=== PATIENT | female | born 1970 | race Caucasian/White ===

== ENCOUNTER 2019-06-13 17:12 | Emergency (ER) | payer MEDICAID, OTHER ==
[~2019-06-13] VITALS: Ht 162.6 cm; Wt 112.0 kg
[~2019-06-13 17:12] MED LIST: AMLO5TAB92 PO; BENZ-49 PO; EPIN0.3P3 IM; PRED10TA PO
[2019-06-13 17:46] VITALS: BP 165/93
[2019-06-13 18:20] LABS: CLARITY,URINE TURBID (Clear); COLOR,URINE YELLOW (Yellow); GLUCOSE, URINE 100 mg/dl (Neg); KETONES,URINE TRACE mg/dl (Neg); LEUKOCYTE ESTERASE ,URINE MODERATE (Neg); NITRITES, URINE POSITIVE (Neg); OCCULT BLOOD,URINE MODERATE (Neg); PROTEIN,URINE 30 mg/dl (Neg)
[2019-06-13 18:28] LABS: UA COLLECTION TYPE CLN CATCH MIDSTREAM
[2019-06-13 18:40] LABS: MUCUS STRANDS FEW /LPF (Neg); SQUAMOUS EPITHELIAL CELL,UR FEW /LPF (FEW); TRANSITIONAL EPI CELLS,URINE FEW /HPF
[2019-06-13 18:41] LABS: WBC,URINE TNTC /HPF (0-4)
[2019-06-13 18:42] LABS: BACTERIA,URINE 4+ /HPF (Neg)
[2019-06-13] MEDS ORDERED: NITR100C6 PO (19:39)
[2019-06-13] MEDS ORDERED: PHEN-716 PO (19:39)
== END 2019-06-13 19:53 | disposition home or self-care (01) ==
LOC: ER 17:13
DX: N39.0 Urinary tract infection, site not specified (principal); F15.90 Other stimulant use, unspecified, uncomplicated; Z91.013 Allergy to seafood; Z79.899 Other long term (current) drug therapy
CPT/HCPCS: 81001; 87077; 87088; 87186; 99283

== ENCOUNTER 2019-06-22 10:10 | Inpatient (IN) | payer OTHER ==
[~2019-06-22] VITALS: Ht 160 cm; Wt 113.0 kg
[~2019-06-22 10:10] MED LIST changes: +NITR100C6 PO; +PHEN-716 PO
[2019-06-22] MEDS ORDERED: ondansetron/PF 4mg/2ml inj IV ONE (10:25)
[2019-06-22] MEDS ORDERED: normal saline 1000ML IV soln IVB ONE (10:25)
[2019-06-22] MEDS ORDERED: metoprolol tartrate 1mg/ml inj IV ONE (10:35)
[2019-06-22] MEDS: morphine 4 MG/ML inj SYRINge IV PRN ×3 (10:39→12:53)
[2019-06-22 10:42] LABS: BASOPHILS # (AUTO) 0.1 X10'3 (0-0.2); BASOPHILS % (AUTO) 0.8 % (0-1); EOSINOPHILS # (AUTO) 0.1 X10'3 (0-0.9); HEMOGLOBIN 13.3 g/dl (12.0-16.0); LYMPHOCYTES # (AUTO) 1.7 X10'3 (1.1-4.8); LYMPHOCYTES % (AUTO) 11.9 % (21-51); MEAN CORPUSCULAR HEMOGLOBIN 30.9 PG (27.0-31.0); MEAN CORPUSCULAR HGB CONC 34.1 g/dL (33.0-36.5); MEAN CORPUSCULAR VOLUME 90.8 FL (78-98); MEAN PLATELET VOLUME 8.3 FL (7.4-10.4); MONOCYTES # (AUTO) 0.5 X10'3 (0-0.9); MONOCYTES % (AUTO) 3.7 % (2-12); NEUTROPHILS # (AUTO) 11.7 X10'3 (1.8-7.7); NEUTROPHILS % (AUTO) 82.6 % (42-75); PLATELET COUNT 321 X10'3 (140-440); RED BLOOD COUNT 4.29 X10'6 (4.20-5.60); RED CELL DISTRIBUTION WIDTH 14.9 % (11.5-14.5); WHITE BLOOD COUNT 14.2 X10'3 (4.5-11.0)
[2019-06-22] MEDS ORDERED: piperacillin/tazo 3.375gm/50ml 50 ML IV ONE (10:50)
[2019-06-22 10:58] LABS: ALANINE AMINOTRANSFERASE 117 U/L (12-78); ALBUMIN 2.8 G/DL (3.4-5.0); ALBUMIN/GLOBULIN RATIO 0.5 (1.1-1.5); ALKALINE PHOSPHATASE 340 IU/L (46-116); ANION GAP 7 (8-16); ASPARTATE AMINO TRANSFERASE 55 U/L (10-37); BILIRUBIN,TOTAL 0.9 MG/DL (0.1-1.0); BLOOD UREA NITROGEN 15 MG/DL (7-18); BUN/CREATININE RATIO 16.5 (6.6-38.0); CALCIUM 8.9 MG/DL (8.5-10.1); CHLORIDE 98 MMOL/L (99-107); CREATININE 0.91 MG/DL (0.40-0.90); GLUCOSE 196 MG/DL (70-104); LIPASE 106 U/L (73-393); POTASSIUM 3.6 MMOL/L (3.5-5.1); SODIUM 136 MMOL/L (135-145); TOTAL CARBON DIOXIDE 31.3 MMOL/L (24-32); TOTAL PROTEIN 7.9 G/DL (6.4-8.2); eGFR 66 ML/MIN
[2019-06-22] MEDS ORDERED: hydrALAZINE 20mg/ml inj. IV ONE ×2 (11:05→12:45)
[2019-06-22 11:06] LABS: URINE HCG NEGATIVE (NEG)
[2019-06-22 11:20] LABS: CLARITY,URINE SLIGHTLY CLOUDY (Clear); COLOR,URINE YELLOW (Yellow); GLUCOSE, URINE 250 mg/dl (Neg); KETONES,URINE NEGATIVE (Neg); LEUKOCYTE ESTERASE ,URINE NEGATIVE (Neg); NITRITES, URINE NEGATIVE (Neg); OCCULT BLOOD,URINE NEGATIVE (Neg); PH,URINE 8.5 (4.8-8.0); PROTEIN,URINE NEGATIVE (Neg)
[2019-06-22 11:21] LABS: UA COLLECTION TYPE CLN CATCH MIDSTREAM
[2019-06-22 11:26] LABS: SQUAMOUS EPITHELIAL CELL,UR FEW /LPF (FEW)
[2019-06-22 11:27] LABS: URINE AMPHETAMINE SCREEN POSITIVE (Neg); URINE BARBITUATE SCREEN NEGATIVE (Neg); URINE BENZODIAZEPINES SCREEN NEGATIVE (Neg); URINE CANNABINOID SCREEN NEGATIVE (Neg); URINE COCAINE SCREEN NEGATIVE (Neg); URINE METHADONE SCREEN NEGATIVE (Neg); URINE OPIATE SCREEN NEGATIVE (Neg); URINE PHENCYCLIDINE SCREEN NEGATIVE (Neg)
[2019-06-22 11:28] LABS: BACTERIA,URINE 1+ /HPF (Neg); MUCUS STRANDS FEW /LPF (Neg); RBC,URINE 0-2 /HPF (0-2)
[2019-06-22 11:29] LABS: HYALINE CASTS 0-3 /LPF (NEGATIVE)
[2019-06-22] MEDS ORDERED: famotidine/PF 10 mg/ml inj IV ONE (11:45)
[2019-06-22] MEDS ORDERED: cloNIDine 0.1 mg tablet PO ONE (12:00)
[2019-06-22] MEDS ORDERED: labetalol 20mg/4ml (5mg/ml) syringe IV ONE (12:40)
[2019-06-22] MEDS ORDERED: LORazepam 2 mg/ml vial IV ONE (12:40)
[2019-06-22] MEDS ORDERED: amLODIPine 5mg tablet PO ONE (12:45)
--- NOTE | 2019-06-22 13:30 | NUR ---
PT SOUND ASLEEP AFTER MEDS AND WONT WAKE UP ENOUGH TO TAKE THE NORVASC SAFELY, PROVIDER NOTIFIED.
[2019-06-22] MEDS ORDERED: AMLO10TA4 PO (14:06)
--- NOTE | 2019-06-22 14:59 | NUR ---
PT VERY GROGGY, VS BETTER. WAITING FRIEND NATALIO ([phone]) TO COME PICK HER UP.
[2019-06-22] MEDS ORDERED: naloxone 2mg/2ml inj ONE (16:02)
--- NOTE | 2019-06-22 16:37 | NUR ---
ASSISSTED PT UP TO [facility], NEW UA SENT ORDERED. WAITING CT
[2019-06-22 17:12] LABS: URINE AMPHETAMINE SCREEN POSITIVE (Neg); URINE BARBITUATE SCREEN NEGATIVE (Neg); URINE BENZODIAZEPINES SCREEN NEGATIVE (Neg); URINE CANNABINOID SCREEN NEGATIVE (Neg); URINE COCAINE SCREEN NEGATIVE (Neg); URINE METHADONE SCREEN NEGATIVE (Neg); URINE OPIATE SCREEN POSITIVE (Neg); URINE PHENCYCLIDINE SCREEN NEGATIVE (Neg)
--- NOTE | 2019-06-22 18:10 | NUR ---
PT UP FOR DC, WENT INTO DC PT SHE IS DIAPHORETIC, BG CHECKED 128, LET DR PIKE KNOW, HE CAME IN AND SAW PT, WILL NOW CONTACT HOSPITALIST
--- NOTE | 2019-06-22 19:23 | NUR ---
PT FRIEND NATALIO #: [phone]
[2019-06-22] MEDS ORDERED: mag hydrox/Alum hydrox/simeth 30ml oral suspension PO PRN (19:50)
[2019-06-22] MEDS ORDERED: acetaminophen 325mg tablet PO PRN (19:50)
[2019-06-22] MEDS ORDERED: normal saline 1000ml 1,000 ML IV ONE (19:50)
[2019-06-22] MEDS ORDERED: ondansetron/PF 4mg/2ml inj IV PRN (19:50)
[2019-06-22] MEDS ORDERED: magnesium 2GM in 50ml NS 50 ML IV PRN (19:50)
[2019-06-22] MEDS ORDERED: potassium CL 10mEq/100ml bag 100 ML IV PRN ×2 (19:50)
[2019-06-22] MEDS ORDERED: magnesium Cl slow-release 64mg tablet PO PRN (19:50)
[2019-06-22] MEDS ORDERED: magnesium hydroxide 30ml (MOM) UD suspension PO PRN (19:50)
[2019-06-22] MEDS ORDERED: potassium Cl 20 mEq SR tablet PO PRN ×2 (19:50)
[2019-06-22] MEDS ORDERED: magnesium 4gm in 100ml NS 100 ML IV PRN (19:50)
[2019-06-22] MEDS: lactobacillus rhamnosus 10,000 MMU CELLS/CAPSULE PO SCH (20:00)
[2019-06-22] MEDS ORDERED: hydrALAZINE 20mg/ml inj. IV PRN (21:05)
[2019-06-22] MEDS ORDERED: LORazepam 1 MG tablet PO PRN (21:05)
--- NOTE | 2019-06-22 21:05 | NUR ---
called to give report, spoke to Alissa says nurse is coming from [place], will call back in a few mins
--- NOTE | 2019-06-22 21:07 | NUR ---
called to give report, spoke to Alissa says nurse is coming from [place], will call back in a few mins
[2019-06-22 21:30] VITALS: BP 110/73
--- NOTE | 2019-06-22 22:04 | NUR ---
2119 RECEIVED REPORT FROM BISI ANN. 2129 RECEIVED PATIENT FROM VIPIN SYED FROM ER WITH ALL BELONGINGS IN STABLE CONDITION. VERY DIAPHORETIC. AWAKES TO VOICE. 4L NC.
[2019-06-22 22:34] VITALS: BP 110/70
--- NOTE | 2019-06-22 22:44 | NUR ---
PAGER ID: [phone] MESSAGE: Elena Wan, [facility] 23B, blood culture from aerobic bottle positive for Gram Negative Rods. Nayan, [id number]
--- NOTE | 2019-06-22 22:54 | NUR ---
Dr. Lutz called back and ordered "banana bag" the multi vit with vit k now. Also ordered sozyn start at midnight. No other orders were giving at this time.
[2019-06-22] MEDS ORDERED: MVI, adult No.4 with vit. K 10 ML in dextrose 5% water 500ml 500 ML IV SCH ×2 (23:55)
[2019-06-22] MEDS ORDERED: MVI, adult No.4 with vit. K 10 ML in dextrose 5% water 500ml 500 ML IV ONE ×2 (23:55)
[2019-06-23] VITALS (17 sets, daily range): BP systolic 128–174; BP diastolic 69–96
[2019-06-23] MEDS ORDERED: piperacillin/tazo 3.375gm/50ml 50 ML IV SCH ×2
--- NOTE | 2019-06-23 00:52 | NUR ---
PAGER ID: [phone] MESSAGE: Savage Elena 48 female, Ortho room 23b, troponin results are 0.04, 0.04, 0.05, and the last troponin came up to be 0.09. Patient still in deep sleep, drowsy.
--- NOTE | 2019-06-23 01:04 | NUR ---
Dr. Lutz acknowledged the troponin level of the patient which was 0.09. Since the patient is in deep sleep, Dr. Lutz ordered 0.2mg Narcan IV once. No other orders were given at this time.
[2019-06-23] MEDS ORDERED: naloxone 0.4 mg/ml inj IV ONE (01:05)
--- NOTE | 2019-06-23 01:31 | NUR ---
the patient is alert, oriented x4. Dr. Lutz at the bedside spoke with the patient. 0.2mg Narcan iv one dose cancelled. No other orders were given by Dr. Lutz.
[2019-06-23 05:18] LABS: ALBUMIN 2.4 G/DL (3.4-5.0); ANION GAP 10 (8-16); BLOOD UREA NITROGEN 27 MG/DL (7-18); BUN/CREATININE RATIO 10.2 (6.6-38.0); CALCIUM 8.6 MG/DL (8.5-10.1); CHLORIDE 99 MMOL/L (99-107); CREATININE 2.65 MG/DL (0.40-0.90); GLUCOSE 191 MG/DL (70-104); MAGNESIUM 1.8 MG/DL (1.5-2.4); POTASSIUM 4.9 MMOL/L (3.5-5.1); SODIUM 136 MMOL/L (135-145); TOTAL CARBON DIOXIDE 26.8 MMOL/L (24-32); eGFR 19 ML/MIN
--- NOTE | 2019-06-23 05:34 | NUR ---
PAGER ID: [phone] MESSAGE: Elena Wan, 48 F, admitted for acute toxic encephalopathy. GFR decreased from 66 to 19, Cr has jumped from 0.9 to 2.65, potassium of 4.9. Patient is resting at this time. Not complaining of anything...
[2019-06-23 05:54] LABS: BASOPHILS # (AUTO) 0.1 X10'3 (0-0.2); BASOPHILS % (AUTO) 0.2 % (0-1); EOSINOPHILS % (AUTO) 0 % (0-6); HEMATOCRIT 35.9 % (35.0-45.0); HEMOGLOBIN 12.1 g/dl (12.0-16.0); LYMPHOCYTES # (AUTO) 1.1 X10'3 (1.1-4.8); LYMPHOCYTES % (AUTO) 2.9 % (21-51); MEAN CORPUSCULAR HEMOGLOBIN 30.8 PG (27.0-31.0); MEAN CORPUSCULAR HGB CONC 33.6 g/dL (33.0-36.5); MEAN CORPUSCULAR VOLUME 91.6 FL (78-98); MONOCYTES # (AUTO) 1.3 X10'3 (0-0.9); MONOCYTES % (AUTO) 3.4 % (2-12); NEUTROPHILS # (AUTO) 34.6 X10'3 (1.8-7.7); NEUTROPHILS % (AUTO) 93.5 % (42-75); PLATELET COUNT 314 X10'3 (140-440); RED BLOOD COUNT 3.92 X10'6 (4.20-5.60); RED CELL DISTRIBUTION WIDTH 14.8 % (11.5-14.5)
--- NOTE | 2019-06-23 06:00 | NUR ---
Called Dr. Talavera and informed him regarding the critical value with WBC being 37.0. He acknowledged the critical lab value but did not order anything at this time.
--- NOTE | 2019-06-23 06:06 | NUR ---
Dr. Lutz ordered NS@ rate of 100 ml/hr continuous. No other orders were given at this time.
--- NOTE | 2019-06-23 06:19 | NUR ---
Problems reprioritized. Patient report given Cecile, questions answered & plan of care reviewed with .
[2019-06-23 06:35] LABS: PLATELET ESTIMATE NORMAL; TOTAL CELLS COUNTED 100
[2019-06-23] MEDS: normal saline 1000ml 1,000 ML IV SCH ×3 (07:26→21:30)
[2019-06-23] MEDS: lactobacillus rhamnosus 10,000 MMU CELLS/CAPSULE PO SCH ×4 (07:29→20:00)
[2019-06-23] MEDS: K and/or MAG REPLACEMENT MC SCH (07:29)
[2019-06-23] MEDS: heparin, porcine 5000 units/ml vial SQ SCH ×2 (07:30→20:11)
[2019-06-23] MEDS ORDERED: thiamine inj. 100 MG, folic acid inj. 2 MG in normal saline 100ml IV soln 100.0 ML IV SCH (08:00)
[2019-06-23] MEDS ORDERED: MVI, adult No.4 with vit. K 10 ML in dextrose 5% water 500ml 500 ML IV SCH ×4 (08:00→22:52)
[2019-06-23] MEDS ORDERED: CefTRIAXone 2gm/D5W 50ml 50 ML IV SCH (08:00)
[2019-06-23] MEDS ORDERED: enoxaparin 40mg/0.4ml syringe SQ SCH (08:00)
[2019-06-23] MEDS ORDERED: metroNIDAZOLE-Flagyl 500mg/NS 100 ML IV SCH (08:00)
[2019-06-23 10:11] LABS: BASOPHILS % (AUTO) 0.1 % (0-1); EOSINOPHILS % (AUTO) 0.1 % (0-6); HEMATOCRIT 35.1 % (35.0-45.0); HEMOGLOBIN 11.8 g/dl (12.0-16.0); LYMPHOCYTES # (AUTO) 1.2 X10'3 (1.1-4.8); LYMPHOCYTES % (AUTO) 3.9 % (21-51); MEAN CORPUSCULAR HEMOGLOBIN 30.6 PG (27.0-31.0); MEAN CORPUSCULAR HGB CONC 33.6 g/dL (33.0-36.5); MEAN CORPUSCULAR VOLUME 91.2 FL (78-98); MEAN PLATELET VOLUME 8.5 FL (7.4-10.4); MONOCYTES # (AUTO) 1.1 X10'3 (0-0.9); MONOCYTES % (AUTO) 3.8 % (2-12); NEUTROPHILS # (AUTO) 28.2 X10'3 (1.8-7.7); NEUTROPHILS % (AUTO) 92.1 % (42-75); PLATELET COUNT 290 X10'3 (140-440); RED BLOOD COUNT 3.85 X10'6 (4.20-5.60); RED CELL DISTRIBUTION WIDTH 15.2 % (11.5-14.5)
[2019-06-23 10:19] LABS: WHITE BLOOD COUNT 30.6 X10'3 (4.5-11.0)
[2019-06-23 10:32] LABS: ALANINE AMINOTRANSFERASE 150 U/L (12-78); ALBUMIN 2.3 G/DL (3.4-5.0); ALBUMIN/GLOBULIN RATIO 0.5 (1.1-1.5); ALKALINE PHOSPHATASE 345 IU/L (46-116); ANION GAP 7 (8-16); ASPARTATE AMINO TRANSFERASE 104 U/L (10-37); BILIRUBIN,TOTAL 1.7 MG/DL (0.1-1.0); BLOOD UREA NITROGEN 31 MG/DL (7-18); BUN/CREATININE RATIO 11.5 (6.6-38.0); CALCIUM 8.6 MG/DL (8.5-10.1); CHLORIDE 98 MMOL/L (99-107); CREATININE 2.69 MG/DL (0.40-0.90); GLUCOSE 214 MG/DL (70-104); POTASSIUM 4.3 MMOL/L (3.5-5.1); SODIUM 135 MMOL/L (135-145); TOTAL CARBON DIOXIDE 29.9 MMOL/L (24-32); eGFR 19 ML/MIN
[2019-06-23] MEDS ORDERED: BUPIVAcaine/PF 2.5 mg/ml (0.25%) 30ml vial ONE (13:40)
[2019-06-23] MEDS ORDERED: ceFAZolin 1000mg inj ONE (13:40)
[2019-06-23] MEDS ORDERED: acetaminophen 1000 MG/100ml vial IV ONE (14:22)
[2019-06-23] MEDS ORDERED: desflurane 240ml liquid inh. IH ONE (14:22)
[2019-06-23] MEDS ORDERED: fentaNYL /PF 50mcg/ml 5ml ampule ONE (14:36)
[2019-06-23] MEDS ORDERED: midazolam 2 mg/2 ml injection ONE (14:36)
[2019-06-23] MEDS ORDERED: LIDOcaine 2% (20mg/ml) 5ml vial ONE (14:37)
[2019-06-23] MEDS ORDERED: ATRACURIUM 10 MG/ML 5ML INJECTION IV ONE (14:37)
[2019-06-23] MEDS ORDERED: propofol inj 20 ML IV ONE (14:37)
[2019-06-23] MEDS ORDERED: ceFOXitin 1000 MG inj ONE ×2 (15:30)
[2019-06-23] MEDS ORDERED: neostigmine methylsulfate 1 MG/ML 10ml vial ONE (15:40)
[2019-06-23] MEDS ORDERED: glycopyrrolate 0.2mg/ml inj ONE (15:40)
--- NOTE | 2019-06-23 15:55 | NUR ---
Received from OR via ICU BED, accompanied by Anesthesiologist DR. ORANTES and report given by Anesthesiolgist. PT ARRIVED SLEEPY AROUSED TO VERBAL. O2 VIA MASK AT 10L IN PLACE. DRESSING TO BAD CDI. TOUSSAINT WITH GOOD CSM. PULSES AND SHIFT SUPERVISOR RN WNL. FC NOTED WITH DARK LEI COLORED URINE. PT IS TO GO TO ICU
--- NOTE | 2019-06-23 16:13 | NUR ---
Patient arrived to 2037 VSS on 2L NC. Sleepy but oriented and appropriate. Attached to monitor and oriented to room and given call light with instructions to call for assistance. BLL and bed alarm set
[2019-06-23] MEDS ORDERED: ringers solution, lacted 1,000 ML IV SCH (16:14)
[2019-06-23] MEDS ORDERED: morphine 4 MG/ML inj SYRINge IV PRN ×2 (16:15)
[2019-06-23] MEDS ORDERED: proCHLORperazine 10 MG/2 ml inj IV PRN (16:15)
[2019-06-23] MEDS ORDERED: enalaprilat dihydrate 2.5mg/2ml vial IV PRN (16:15)
[2019-06-23] MEDS ORDERED: labetalol 20mg/4ml (5mg/ml) syringe IV PRN (16:15)
[2019-06-23] MEDS ORDERED: ondansetron/PF 4mg/2ml inj IV PRN (16:15)
--- NOTE | 2019-06-23 16:15 | NUR ---
Report called to receiving nurse ALCIDES ANN. Transferred via ICU BED TO ROOM 203. Belongings ARE IN ROOM 4023B FAMILY/STAFF WILL RETRIEVE THEM. VSS ON TRANSFER. Special Issues communicated to receiving nurse.
[2019-06-23 17:14] LABS: TOTAL PROTEIN,URINE RANDOM 48.4 MG/DL
[2019-06-23 17:21] LABS: CLARITY,URINE CLEAR (Clear); GLUCOSE, URINE 100 mg/dl (Neg); KETONES,URINE NEGATIVE (Neg); LEUKOCYTE ESTERASE ,URINE NEGATIVE (Neg); OCCULT BLOOD,URINE TRACE-INTACT (Neg); PH,URINE 5.5 (4.8-8.0); PROTEIN,URINE 30 mg/dl (Neg)
[2019-06-23 17:32] LABS: COLOR,URINE DARK YELLOW (Yellow); UA COLLECTION TYPE FOLEY CATH
[2019-06-23 17:34] LABS: NITRITES, URINE NEGATIVE (Neg)
[2019-06-23 17:35] LABS: RBC,URINE 0-2 /HPF (0-2)
[2019-06-23] MEDS: piperacillin/tazo 4.5gm/100ml 100 ML IV SCH ×2 (17:35→23:46)
[2019-06-23 17:36] LABS: BACTERIA,URINE FEW /HPF (Neg); MUCUS STRANDS NONE SEEN /LPF (Neg); SQUAMOUS EPITHELIAL CELL,UR FEW /LPF (FEW)
[2019-06-23 18:10] LABS: UA EOSINOPHILS NO EOS /HPF
--- NOTE | 2019-06-23 18:15 | NUR ---
Patient in room ICU 2037. I have received report from Jesus ANN and had the opportunity to ask questions and assume patient care.
[2019-06-23] MEDS ORDERED: HYDROmorphone inj. 0.5 MG/0.5 ML DISP.SYRIN IV PRN (19:55)
[2019-06-23 20:03] LABS: BASOPHILS # (AUTO) 0.1 X10'3 (0-0.2); BASOPHILS % (AUTO) 0.5 % (0-1); EOSINOPHILS % (AUTO) 0.1 % (0-6); HEMATOCRIT 34.1 % (35.0-45.0); HEMOGLOBIN 11.7 g/dl (12.0-16.0); LYMPHOCYTES # (AUTO) 0.9 X10'3 (1.1-4.8); LYMPHOCYTES % (AUTO) 3.3 % (21-51); MEAN CORPUSCULAR HEMOGLOBIN 31.2 PG (27.0-31.0); MEAN CORPUSCULAR HGB CONC 34.3 g/dL (33.0-36.5); MEAN PLATELET VOLUME 8.8 FL (7.4-10.4); MONOCYTES # (AUTO) 0.9 X10'3 (0-0.9); MONOCYTES % (AUTO) 3.1 % (2-12); NEUTROPHILS # (AUTO) 25.9 X10'3 (1.8-7.7); PLATELET COUNT 249 X10'3 (140-440); RED BLOOD COUNT 3.74 X10'6 (4.20-5.60); RED CELL DISTRIBUTION WIDTH 14.8 % (11.5-14.5)
[2019-06-23 20:06] LABS: WHITE BLOOD COUNT 27.8 X10'3 (4.5-11.0)
[2019-06-23] MEDS: HYDROmorphone inj. 0.5 MG/0.5 ML DISP.SYRIN IV PRN (20:13)
[2019-06-23 20:19] LABS: ALANINE AMINOTRANSFERASE 147 U/L (12-78); ALBUMIN 2.1 G/DL (3.4-5.0); ALBUMIN/GLOBULIN RATIO 0.5 (1.1-1.5); ALKALINE PHOSPHATASE 303 IU/L (46-116); ANION GAP 11 (8-16); ASPARTATE AMINO TRANSFERASE 140 U/L (10-37); BILIRUBIN,TOTAL 2.3 MG/DL (0.1-1.0); BLOOD UREA NITROGEN 32 MG/DL (7-18); BUN/CREATININE RATIO 15.2 (6.6-38.0); CHLORIDE 102 MMOL/L (99-107); GLUCOSE 181 MG/DL (70-104); POTASSIUM 4.3 MMOL/L (3.5-5.1); SODIUM 136 MMOL/L (135-145); TOTAL CARBON DIOXIDE 23.5 MMOL/L (24-32); TOTAL PROTEIN 6.5 G/DL (6.4-8.2); eGFR 25 ML/MIN
[2019-06-24] VITALS (24 sets, daily range): BP systolic 112–187; BP diastolic 59–111
[2019-06-24] MEDS: HYDROmorphone inj. 0.5 MG/0.5 ML DISP.SYRIN IV PRN ×4 (00:08→19:39)
[2019-06-24] MEDS: LORazepam 2 mg/ml vial IV PRN ×3 (02:31→19:38)
[2019-06-24] MEDS ORDERED: HYDROmorphone 1 mg/ml syringe IV ONE (03:05)
[2019-06-24] MEDS ORDERED: simethicone 80mg chew tab PO ONE (03:05)
--- NOTE | 2019-06-24 03:05 | NUR ---
Call placed and spoke with Chantale DUBOSE concerning pt uncontroled pain. Chantale DUBOSE advised she would put in orders for patient.
[2019-06-24] MEDS: normal saline 1000ml 1,000 ML IV SCH ×3 (04:05→17:21)
[2019-06-24 05:16] LABS: BASOPHILS % (AUTO) 0.1 % (0-1); EOSINOPHILS % (AUTO) 0 % (0-6); HEMATOCRIT 31.8 % (35.0-45.0); HEMOGLOBIN 10.7 g/dl (12.0-16.0); LYMPHOCYTES % (AUTO) 4.5 % (21-51); MEAN CORPUSCULAR HGB CONC 33.6 g/dL (33.0-36.5); MEAN CORPUSCULAR VOLUME 92.4 FL (78-98); MEAN PLATELET VOLUME 9.2 FL (7.4-10.4); MONOCYTES # (AUTO) 0.8 X10'3 (0-0.9); MONOCYTES % (AUTO) 3.5 % (2-12); NEUTROPHILS # (AUTO) 20.7 X10'3 (1.8-7.7); NEUTROPHILS % (AUTO) 91.9 % (42-75); PLATELET COUNT 244 X10'3 (140-440); RED BLOOD COUNT 3.45 X10'6 (4.20-5.60); RED CELL DISTRIBUTION WIDTH 14.7 % (11.5-14.5); WHITE BLOOD COUNT 22.5 X10'3 (4.5-11.0)
[2019-06-24 05:18] LABS: ANION GAP 12 (8-16); BLOOD UREA NITROGEN 26 MG/DL (7-18); BUN/CREATININE RATIO 14.4 (6.6-38.0); CALCIUM 8.4 MG/DL (8.5-10.1); CHLORIDE 104 MMOL/L (99-107); CREATININE 1.81 MG/DL (0.40-0.90); GLUCOSE 127 MG/DL (70-104); MAGNESIUM 1.8 MG/DL (1.5-2.4); POTASSIUM 4.3 MMOL/L (3.5-5.1); SODIUM 141 MMOL/L (135-145); TOTAL CARBON DIOXIDE 25.2 MMOL/L (24-32); eGFR 30 ML/MIN
--- NOTE | 2019-06-24 05:55 | NUR ---
This RN has made multiple attempts to instruct patient in use of IS and demonstrate understanding. Patient continues to refuse and be noncompliant,
--- NOTE | 2019-06-24 06:14 | NUR ---
Problems reprioritized. Patient report given, questions answered & plan of care reviewed with Jesus ANN.
[2019-06-24] MEDS: lactobacillus rhamnosus 10,000 MMU CELLS/CAPSULE PO SCH ×3 (08:00→19:16)
[2019-06-24] MEDS: K and/or MAG REPLACEMENT MC SCH (08:00)
[2019-06-24] MEDS: piperacillin/tazo 4.5gm/100ml 100 ML IV SCH (08:56)
[2019-06-24] MEDS: heparin, porcine 5000 units/ml vial SQ SCH ×2 (09:14→20:43)
[2019-06-24] MEDS: CefTRIAXone 2gm/D5W 50ml 50 ML IV SCH (11:57)
--- NOTE | 2019-06-24 12:30 | NUR ---
About two hours after getting Dilaudid, pt begins labored breathing rr in the high 30's, HR and BP increases significantly. patient seems to be in a lot of pain and is grunting and difficult to understand. Md to bedside to assess; orders for abg and cxr Addendum: 06/24/19 at 1305 by Jesus Dumont RN Pt appears in distress moaning states her stomach hurts but unable to elaborate. She is diaphoretic and restless, pulling off bp cuff and ekg wires. current vitals; HR 132 ST, RR 40, BP 139/106 o2 sat 93 on RA. MD states dont do or give her anything. will continue to monitor Addendum: 06/24/19 at 1312 by Jesus Dumont RN Charge nurse updated. She thinks it likely related to meth withdrawals and that i should continue giving dilauded Addendum: 06/24/19 at 1312 by Jesus Dumont RN as ordered*
[2019-06-24 12:35] LABS: ABG BASE EXCESS -3.1 mmol/L (-2.0-3.0); ABG HCO3 20.3 mmol/L (22.0-26.0); ABG OXYGEN SATURATION 93.4 % (95-98); ABG PCO2 (T) 32.7 mmHg (35.0-45.0); ABG PH (T) 7.415 (7.350-7.450); ALLEN'S TEST Positive; FCOHb 0.9 % (0.5-1.5); FO2Hb 92.6 % (94-100); TOTAL HEMOGLOBIN 11.8 G/dl (12.0-16.0)
[2019-06-24] MEDS: metoprolol tartrate 1mg/ml inj IV PRN ×2 (16:41→17:51)
--- NOTE | 2019-06-24 17:49 | NUR ---
BP 189/106. notified; ordered to give another 5mg of IV metoprolol
[2019-06-24] MEDS ORDERED: acetaminophen 650mg rectal suppository RC PRN ×2 (19:50)
[2019-06-25] VITALS (18 sets, daily range): BP systolic 133–240; BP diastolic 78–130
[2019-06-25] MEDS: HYDROmorphone inj. 0.5 MG/0.5 ML DISP.SYRIN IV PRN ×6 (00:11→21:30)
[2019-06-25] MEDS: normal saline 1000ml 1,000 ML IV SCH ×3 (01:32→13:59)
[2019-06-25 05:16] LABS: BASOPHILS # (AUTO) 0.1 X10'3 (0-0.2); BASOPHILS % (AUTO) 0.3 % (0-1); EOSINOPHILS # (AUTO) 0.1 X10'3 (0-0.9); EOSINOPHILS % (AUTO) 0.4 % (0-6); HEMATOCRIT 29.6 % (35.0-45.0); HEMOGLOBIN 9.8 g/dl (12.0-16.0); LYMPHOCYTES # (AUTO) 1.4 X10'3 (1.1-4.8); LYMPHOCYTES % (AUTO) 8.3 % (21-51); MEAN CORPUSCULAR HEMOGLOBIN 30.8 PG (27.0-31.0); MEAN CORPUSCULAR HGB CONC 33.2 g/dL (33.0-36.5); MEAN CORPUSCULAR VOLUME 92.8 FL (78-98); MEAN PLATELET VOLUME 9.4 FL (7.4-10.4); MONOCYTES # (AUTO) 0.8 X10'3 (0-0.9); MONOCYTES % (AUTO) 5.1 % (2-12); NEUTROPHILS # (AUTO) 14.3 X10'3 (1.8-7.7); NEUTROPHILS % (AUTO) 85.9 % (42-75); PLATELET COUNT 288 X10'3 (140-440); RED BLOOD COUNT 3.19 X10'6 (4.20-5.60); RED CELL DISTRIBUTION WIDTH 14.9 % (11.5-14.5); WHITE BLOOD COUNT 16.6 X10'3 (4.5-11.0)
[2019-06-25 05:26] LABS: ALBUMIN 1.7 G/DL (3.4-5.0); ANION GAP 7 (8-16); BLOOD UREA NITROGEN 21 MG/DL (7-18); BUN/CREATININE RATIO 17.5 (6.6-38.0); CALCIUM 8.5 MG/DL (8.5-10.1); CHLORIDE 111 MMOL/L (99-107); GLUCOSE 93 MG/DL (70-104); MAGNESIUM 1.8 MG/DL (1.5-2.4); POTASSIUM 3.9 MMOL/L (3.5-5.1); SODIUM 144 MMOL/L (135-145); TOTAL CARBON DIOXIDE 26.5 MMOL/L (24-32); eGFR 48 ML/MIN
[2019-06-25] MEDS: K and/or MAG REPLACEMENT MC SCH (07:27)
[2019-06-25] MEDS: lactobacillus rhamnosus 10,000 MMU CELLS/CAPSULE PO SCH ×2 (08:00→20:19)
[2019-06-25] MEDS: CefTRIAXone 2gm/D5W 50ml 50 ML IV SCH (08:19)
[2019-06-25] MEDS: heparin, porcine 5000 units/ml vial SQ SCH ×2 (08:24→20:19)
[2019-06-25] MEDS: diltiazem 30mg tablet PO SCH ×3 (09:44→20:19)
[2019-06-25] MEDS: LORazepam 2 mg/ml vial IV PRN (11:03)
[2019-06-25] MEDS: metoprolol tartrate 1mg/ml inj IV PRN (11:25)
[2019-06-25] MEDS ORDERED: metoprolol tartrate 1mg/ml inj IV PRN (13:35)
--- NOTE | 2019-06-25 13:45 | NUR ---
MD aware of continuing HTN, as high as 240/130. Orders received to increase dose of IV Lopressor.
[2019-06-25] MEDS: hydrALAZINE 20mg/ml inj. IV PRN (21:05)
[2019-06-26] MEDS: HYDROmorphone inj. 0.5 MG/0.5 ML DISP.SYRIN IV PRN ×4 (02:13→22:12)
[2019-06-26] MEDS: diltiazem 30mg tablet PO SCH ×3 (02:25→13:42)
[2019-06-26] MEDS: normal saline 1000ml 1,000 ML IV SCH ×4 (04:07→18:47)
[2019-06-26 06:08] LABS: BASOPHILS # (AUTO) 0.1 X10'3 (0-0.2); BASOPHILS % (AUTO) 0.5 % (0-1); EOSINOPHILS # (AUTO) 0.1 X10'3 (0-0.9); EOSINOPHILS % (AUTO) 0.8 % (0-6); HEMATOCRIT 30.2 % (35.0-45.0); HEMOGLOBIN 10.1 g/dl (12.0-16.0); LYMPHOCYTES # (AUTO) 1.7 X10'3 (1.1-4.8); LYMPHOCYTES % (AUTO) 13.5 % (21-51); MEAN CORPUSCULAR HEMOGLOBIN 30.9 PG (27.0-31.0); MEAN CORPUSCULAR HGB CONC 33.5 g/dL (33.0-36.5); MEAN CORPUSCULAR VOLUME 92.2 FL (78-98); MEAN PLATELET VOLUME 9.2 FL (7.4-10.4); MONOCYTES # (AUTO) 0.8 X10'3 (0-0.9); MONOCYTES % (AUTO) 6.7 % (2-12); NEUTROPHILS # (AUTO) 9.9 X10'3 (1.8-7.7); NEUTROPHILS % (AUTO) 78.5 % (42-75); PLATELET COUNT 388 X10'3 (140-440); RED BLOOD COUNT 3.28 X10'6 (4.20-5.60); RED CELL DISTRIBUTION WIDTH 14.7 % (11.5-14.5); WHITE BLOOD COUNT 12.7 X10'3 (4.5-11.0)
[2019-06-26 06:16] LABS: ALBUMIN 1.8 G/DL (3.4-5.0); ANION GAP 12 (8-16); BLOOD UREA NITROGEN 13 MG/DL (7-18); BUN/CREATININE RATIO 14.3 (6.6-38.0); CALCIUM 8.4 MG/DL (8.5-10.1); CHLORIDE 107 MMOL/L (99-107); CREATININE 0.91 MG/DL (0.40-0.90); GLUCOSE 104 MG/DL (70-104); MAGNESIUM 1.5 MG/DL (1.5-2.4); SODIUM 144 MMOL/L (135-145); eGFR 66 ML/MIN
[2019-06-26] MEDS ORDERED: potassium CL 10mEq/100ml bag 100 ML IV PRN (06:25)
--- NOTE | 2019-06-26 06:34 | NUR ---
Patient in room CED 356. I have received report from Daniela ANN and had the opportunity to ask questions and assume patient care.
[2019-06-26 08:00] VITALS: BP 193/119
[2019-06-26] MEDS: K and/or MAG REPLACEMENT MC SCH (08:00)
[2019-06-26] MEDS: heparin, porcine 5000 units/ml vial SQ SCH ×2 (08:03→19:49)
[2019-06-26] MEDS: lactobacillus rhamnosus 10,000 MMU CELLS/CAPSULE PO SCH ×2 (08:05→19:49)
[2019-06-26] MEDS: potassium Cl 20 mEq SR tablet PO PRN ×3 (08:06→17:08)
[2019-06-26] MEDS: CefTRIAXone 2gm/D5W 50ml 50 ML IV SCH (08:07)
[2019-06-26] MEDS: hydrALAZINE 20mg/ml inj. IV PRN (09:29)
[2019-06-26] MEDS ORDERED: cloNIDine 0.1 mg tablet PO SCH (10:20)
--- NOTE | 2019-06-26 10:23 | NUR ---
patient B/P 195/114 scheduled meds given ineffective, B/P still 2o4/[address] Morales paged. Order for clonidine given. will continue to monitor.
[2019-06-26] MEDS: acetaminophen 325mg tablet PO PRN (10:40)
[2019-06-26 11:00] VITALS: BP 161/94
--- NOTE | 2019-06-26 17:44 | NUR ---
B/P 147/94 [address] Kaur increased diet to Clear lqd advance as tolerated
[2019-06-26 18:00] VITALS: BP 179/96
--- NOTE | 2019-06-26 18:25 | NUR ---
Patient in room CED 356. I have received report from Lakeshia Reese and had the opportunity to ask questions and assume patient care. Addendum: 06/27/19 at 0217 by Isa Leung RN Amended: Links added.
[2019-06-26] MEDS: lisinopril 5mg tablet PO SCH (19:49)
--- NOTE | 2019-06-26 20:15 | NUR ---
post op [id number] done and encouraging coughing and deep breathing.
--- NOTE | 2019-06-26 22:00 | NUR ---
pt assisted up after medicating for pain with iv Dilaudid to ambulate in the brown x2 2 laps 600ft. pt on period moderate to heavy with clots. afterwards skin care done, linen changed and head care with new pads applied. tele leads changed with new on. noted pt passed gas with ambulation and incontinent of small amount of stool soft formed brown pastey. skin care given. tolerated well.
[2019-06-27 00:06] VITALS: BP 187/101
[2019-06-27] MEDS: hydrALAZINE 20mg/ml inj. IV PRN ×2 (00:23→22:45)
--- NOTE | 2019-06-27 00:23 | NUR ---
bp 187/101 hydralazine 10mg given for this.
--- NOTE | 2019-06-27 01:05 | NUR ---
awoke restless and stated painful ambulated pt to [facility] had med sized soft stool. then up ambulating in the brown x2 laps 600ft. with front wheel walker. pt tolerated it well. needs a lot of encouragement to get out of bed moving.
[2019-06-27 02:00] VITALS: BP 185/101
--- NOTE | 2019-06-27 02:02 | NUR ---
resting eyes closed appears comfortable at this time.
--- NOTE | 2019-06-27 02:04 | NUR ---
pt awakened for vital medicated pain 5/10 had hydralazine earlier for bp. will recheck bp later. 185/101.
[2019-06-27] MEDS: HYDROmorphone inj. 0.5 MG/0.5 ML DISP.SYRIN IV PRN ×2 (02:06→05:55)
[2019-06-27 03:40] VITALS: BP 174/102
--- NOTE | 2019-06-27 03:40 | NUR ---
Dr iLn called regarding pt's bp remains elevated despite lisinopril given , then hydralazine, Dilaudid Iv, now 174/102 with heart rate 102-107. order for x1 dose of Cardizem to be given.
[2019-06-27] MEDS ORDERED: diltiazem 30mg tablet PO ONE (03:45)
--- NOTE | 2019-06-27 03:50 | NUR ---
Cardizem 60mg obtained and given to the pt. Teaching done with the pt as to the importance of following up regarding her bp and abstinence from drugs.
[2019-06-27 04:34] LABS: BASOPHILS # (AUTO) 0.1 X10'3 (0-0.2); BASOPHILS % (AUTO) 0.6 % (0-1); EOSINOPHILS # (AUTO) 0.2 X10'3 (0-0.9); EOSINOPHILS % (AUTO) 1.7 % (0-6); HEMATOCRIT 29.7 % (35.0-45.0); HEMOGLOBIN 10.2 g/dl (12.0-16.0); LYMPHOCYTES # (AUTO) 1.5 X10'3 (1.1-4.8); LYMPHOCYTES % (AUTO) 14.2 % (21-51); MEAN CORPUSCULAR HEMOGLOBIN 31.1 PG (27.0-31.0); MEAN CORPUSCULAR HGB CONC 34.5 g/dL (33.0-36.5); MEAN CORPUSCULAR VOLUME 90.3 FL (78-98); MEAN PLATELET VOLUME 8.4 FL (7.4-10.4); MONOCYTES # (AUTO) 0.8 X10'3 (0-0.9); MONOCYTES % (AUTO) 7.8 % (2-12); NEUTROPHILS # (AUTO) 7.9 X10'3 (1.8-7.7); NEUTROPHILS % (AUTO) 75.7 % (42-75); PLATELET COUNT 436 X10'3 (140-440); RED BLOOD COUNT 3.29 X10'6 (4.20-5.60); RED CELL DISTRIBUTION WIDTH 14.4 % (11.5-14.5); WHITE BLOOD COUNT 10.4 X10'3 (4.5-11.0)
[2019-06-27 04:45] LABS: ALBUMIN 1.9 G/DL (3.4-5.0); ANION GAP 11 (8-16); BLOOD UREA NITROGEN 11 MG/DL (7-18); BUN/CREATININE RATIO 12.2 (6.6-38.0); CALCIUM 8.6 MG/DL (8.5-10.1); CHLORIDE 109 MMOL/L (99-107); GLUCOSE 129 MG/DL (70-104); MAGNESIUM 1.5 MG/DL (1.5-2.4); POTASSIUM 3.4 MMOL/L (3.5-5.1); SODIUM 146 MMOL/L (135-145); TOTAL CARBON DIOXIDE 26.5 MMOL/L (24-32); eGFR 67 ML/MIN
--- NOTE | 2019-06-27 05:35 | NUR ---
pt medicated for pain with po norco.
--- NOTE | 2019-06-27 05:59 | NUR ---
pt medicated for pain at this time. then head dc'd cath tubing intact. noted 300 out.
--- NOTE | 2019-06-27 06:43 | NUR ---
Problems reprioritized. Patient report given, questions answered & plan of care reviewed with Viktoriya Reese. Addendum: 06/27/19 at 0644 by Isa Leung RN Amended: Links added.
--- NOTE | 2019-06-27 07:04 | NUR ---
Patient in room CED 356. I have received report from Isa ANN and had the opportunity to ask questions and assume patient care.
[2019-06-27] MEDS: CefTRIAXone 2gm/D5W 50ml 50 ML IV SCH (07:41)
[2019-06-27] MEDS: lisinopril 5mg tablet PO SCH ×2 (07:41→20:32)
[2019-06-27] MEDS: potassium Cl 20 mEq SR tablet PO PRN ×3 (07:42→20:34)
[2019-06-27] MEDS: lactobacillus rhamnosus 10,000 MMU CELLS/CAPSULE PO SCH ×2 (07:42→20:32)
[2019-06-27] MEDS: heparin, porcine 5000 units/ml vial SQ SCH ×2 (07:43→20:32)
[2019-06-27] MEDS: K and/or MAG REPLACEMENT MC SCH (08:00)
[2019-06-27 08:54] VITALS: BP 154/86
[2019-06-27] MEDS: acetaminophen 325mg tablet PO PRN (11:53)
[2019-06-27 12:24] VITALS: BP 154/87
--- NOTE | 2019-06-27 13:33 | NUR ---
Initial: patient is s/p laparoscopic cholecystectomy with findings of gangrenous cholecystitis and cholelithiasis, continues treatment for sepsis secondary to cholecystitis. She was placed on clear liquid diet 06/26 and was advanced to regular after lunch at 12:59, pending meal intake. No GI symptoms except for abdominal pain. Had small BM today, two BMs yesterday. Recommend: 1. continue regular diet 2. monitor need for bowel care 3. weight per rx Addendum: 06/27/19 at [address] Amended: Links added.
[2019-06-27] MEDS ORDERED: HYDROcodone/acetaminophen 10/325mg tab PO PRN (16:00)
[2019-06-27] MEDS: HYDROcodone/acetaminophen 5mg/325mg tablet PO PRN ×2 (17:45→22:45)
[2019-06-27 18:50] VITALS: BP 154/100
--- NOTE | 2019-06-27 19:01 | NUR ---
Problems reprioritized. Patient report given, questions answered & plan of care reviewed with Oskar ANN.
[2019-06-28] VITALS (7 sets, daily range): BP systolic 166–196; BP diastolic 95–116
[2019-06-28] MEDS: HYDROcodone/acetaminophen 5mg/325mg tablet PO PRN (04:35)
[2019-06-28 05:59] LABS: MAGNESIUM 1.4 MG/DL (1.5-2.4); POTASSIUM 3.3 MMOL/L (3.5-5.1)
--- NOTE | 2019-06-28 06:22 | NUR ---
Problems reprioritized. Patient report given, questions answered & plan of care reviewed with MACEY. Addendum: 06/28/19 at 0622 by Tio Toney RN Amended: Links added.
--- NOTE | 2019-06-28 06:25 | NUR ---
Problems reprioritized. Patient report given, questions answered & plan of care reviewed with MACEY. Addendum: 06/28/19 at 0626 by Tio Toney RN Amended: Links added.
--- NOTE | 2019-06-28 06:26 | NUR ---
Patient in room CED 357. I have received report from MARISSA Colon and had the opportunity to ask questions and assume patient care.
--- NOTE | 2019-06-28 06:35 | NUR ---
Patient in room CED 357. I have received report from MARISSA LINDQUIST and had the opportunity to ask questions and assume patient care.
[2019-06-28] MEDS: lisinopril 5mg tablet PO SCH ×2 (07:51→19:18)
[2019-06-28] MEDS: CefTRIAXone 2gm/D5W 50ml 50 ML IV SCH (07:51)
[2019-06-28] MEDS: lactobacillus rhamnosus 10,000 MMU CELLS/CAPSULE PO SCH ×2 (07:51→19:17)
[2019-06-28] MEDS: heparin, porcine 5000 units/ml vial SQ SCH ×2 (07:52→19:19)
[2019-06-28] MEDS: K and/or MAG REPLACEMENT MC SCH (08:00)
[2019-06-28] MEDS: potassium Cl 20 mEq SR tablet PO PRN ×3 (08:13→21:05)
[2019-06-28] MEDS: magnesium Cl slow-release 64mg tablet PO PRN ×2 (08:16→21:05)
[2019-06-28] MEDS: hydrALAZINE 20mg/ml inj. IV PRN ×2 (08:57→17:29)
--- NOTE | 2019-06-28 09:08 | NUR ---
Patient's BP this morning was high this morning at 196/116, so morning lisinopril was issued. Upon recheck patient BP was 207/114 so PRN hydralazine was given.
--- NOTE | 2019-06-28 12:06 | NUR ---
Patient BP high but too soon for PRN hydralazine notified at 1205 awaiting orders.
[2019-06-28] MEDS ORDERED: hydrALAZINE 20mg/ml inj. IV ONE (12:10)
--- NOTE | 2019-06-28 13:01 | NUR ---
RECHECKED PATIENT BP AFTER HYDRALAZINE 10MG IV ONCE ADMINISTERED ORDERED. BP179/[address] AGARWAL NOTIFIED.
[2019-06-28] MEDS ORDERED: metoprolol tartrate 25mg tablet PO ONE (13:10)
--- NOTE | 2019-06-28 17:41 | NUR ---
Patients bp was 171/93 at 1730 PRN Hydralazine was administered.
--- NOTE | 2019-06-28 18:12 | NUR ---
Problems reprioritized. Patient report given, questions answered & plan of care reviewed with MARISSA Colon.
[2019-06-28 18:32] LABS: URINE AMPHETAMINE SCREEN NEGATIVE (Neg); URINE BARBITUATE SCREEN NEGATIVE (Neg); URINE BENZODIAZEPINES SCREEN NEGATIVE (Neg); URINE CANNABINOID SCREEN NEGATIVE (Neg); URINE COCAINE SCREEN NEGATIVE (Neg); URINE METHADONE SCREEN NEGATIVE (Neg); URINE OPIATE SCREEN POSITIVE (Neg); URINE PHENCYCLIDINE SCREEN NEGATIVE (Neg)
[2019-06-29] VITALS (7 sets, daily range): BP systolic 137–189; BP diastolic 77–110
[2019-06-29] MEDS: hydrALAZINE 20mg/ml inj. IV PRN (04:51)
[2019-06-29 05:34] LABS: MAGNESIUM 1.5 MG/DL (1.5-2.4); POTASSIUM 3.6 MMOL/L (3.5-5.1)
--- NOTE | 2019-06-29 06:00 | NUR ---
Problems reprioritized. Patient report given, questions answered & plan of care reviewed with DAVIS. Addendum: 06/29/19 at 0658 by Tio Toney RN Amended: Links added.
[2019-06-29] MEDS: K and/or MAG REPLACEMENT MC SCH (08:00)
[2019-06-29] MEDS: heparin, porcine 5000 units/ml vial SQ SCH (08:23)
[2019-06-29] MEDS: lactobacillus rhamnosus 10,000 MMU CELLS/CAPSULE PO SCH (08:24)
[2019-06-29] MEDS: lisinopril 5mg tablet PO SCH (08:24)
[2019-06-29] MEDS: CefTRIAXone 2gm/D5W 50ml 50 ML IV SCH (08:24)
[2019-06-29] MEDS ORDERED: lisinopril 5mg tablet PO ONE (11:55)
[2019-06-29] MEDS ORDERED: metoprolol succinate 25mg (24-HOUR) SR. Tablet PO SCH (12:35)
[2019-06-29] MEDS ORDERED: LEVO750T46 PO (12:36)
[2019-06-29] MEDS ORDERED: LISI10TA4 PO (12:37)
[2019-06-29] MEDS ORDERED: METO-395 PO (12:38)
[2019-06-29 13:24] LABS: BASOPHILS # (AUTO) 0.1 X10'3 (0-0.2); BASOPHILS % (AUTO) 1.1 % (0-1); EOSINOPHILS # (AUTO) 0.5 X10'3 (0-0.9); EOSINOPHILS % (AUTO) 4.7 % (0-6); HEMATOCRIT 31.9 % (35.0-45.0); HEMOGLOBIN 10.8 g/dl (12.0-16.0); LYMPHOCYTES # (AUTO) 1.6 X10'3 (1.1-4.8); LYMPHOCYTES % (AUTO) 16.3 % (21-51); MEAN CORPUSCULAR HEMOGLOBIN 31.1 PG (27.0-31.0); MEAN CORPUSCULAR HGB CONC 33.9 g/dL (33.0-36.5); MEAN CORPUSCULAR VOLUME 91.8 FL (78-98); MEAN PLATELET VOLUME 8.3 FL (7.4-10.4); MONOCYTES # (AUTO) 0.8 X10'3 (0-0.9); MONOCYTES % (AUTO) 7.8 % (2-12); NEUTROPHILS # (AUTO) 6.9 X10'3 (1.8-7.7); NEUTROPHILS % (AUTO) 70.1 % (42-75); PLATELET COUNT 566 X10'3 (140-440); RED BLOOD COUNT 3.48 X10'6 (4.20-5.60); RED CELL DISTRIBUTION WIDTH 14.5 % (11.5-14.5); WHITE BLOOD COUNT 9.9 X10'3 (4.5-11.0)
[2019-06-29 13:35] LABS: ALBUMIN 2.1 G/DL (3.4-5.0); ANION GAP 8 (8-16); BLOOD UREA NITROGEN 10 MG/DL (7-18); CALCIUM 8.6 MG/DL (8.5-10.1); CHLORIDE 104 MMOL/L (99-107); GLUCOSE 146 MG/DL (70-104); POTASSIUM 3.4 MMOL/L (3.5-5.1); SODIUM 140 MMOL/L (135-145); TOTAL CARBON DIOXIDE 28.4 MMOL/L (24-32); eGFR 59 ML/MIN
--- NOTE | 2019-06-29 14:44 | NUR ---
DR Lai phoned from OR and stated pt may be discharged home by hospitalist today. Dr. Nelson notified via [facility]. Urvashi, primary care RNs, also notified.
[2019-06-29] MEDS ORDERED: metoprolol succinate 25mg (24-HOUR) SR. Tablet PO ONE (15:15)
[2019-06-29] MEDS ORDERED: METO25TA6 PO (15:18)
--- NOTE | 2019-06-29 15:23 | NUR ---
Pt SBP in 180's again, Dr Nelson aware. She ordered another dose of metoprolol 25mg to add on to previous dose and then will change discharge metropolol to short acting bid 25mg. Dr Nelson says it is okay to discharge after giving med, no need to wait for bp to come down since she is on these meds. She needs to f/u with PCP. Talked to friend in length on phone that is going to help follow up with blood pressure and help pt get home bp cuff.
--- NOTE | 2019-06-29 17:00 | NUR ---
MD Nelson okayed discharging patient aware of blood pressure of 181/97.
--- NOTE | 2019-06-29 17:30 | NUR ---
Patient alert and oriented and appropriate for discharge, patient will monitor bp at home, patients has been thoroughly educated on signs and symptoms for which to contact 911 or go to ER, patient states will buy own blood pressure monitor. Patient verbalized understanding of all discharge instructions, left with all belongings, IV removed, tele monitor D/Camron and returned, DR.Gonzolas moreno D/C and left to hospitalists discretion.
[2019-06-29] MEDS ORDERED: lisinopril 5mg tablet PO SCH (20:00)
== END 2019-06-29 17:55 | disposition home or self-care (01) | DRG 853 ==
LOC: ER 10:10 → ED HOLD 20:03 → EDBEDREQ 20:47 → ORTHO 4S 21:30 → CMPBEDREQ 21:31 → ORTHO 4S 21:32 → ICU 2S 06-23 15:55 → SUR 3N 06-25 15:20
PROVIDERS: ADMIT Hospitalist; ATTEND Internal Medicine
PROC: 0FT40ZZ Resection of Gallbladder, Open Approach (ICD-10-PCS; principal; 2019-06-23 14:32)
DX: A41.51 Sepsis due to Escherichia coli [E. coli] (principal); G92 Toxic encephalopathy; N17.0 Acute kidney failure with tubular necrosis; I67.4 Hypertensive encephalopathy; K80.00 Calculus of gallbladder with acute cholecystitis without obstruction; K82.1 Hydrops of gallbladder; Z68.41 Body mass index [BMI] 40.0-44.9, adult; D72.1 Eosinophilia; E66.01 Morbid (severe) obesity due to excess calories; E87.6 Hypokalemia; F15.10 Other stimulant abuse, uncomplicated; I10 Essential (primary) hypertension; D64.9 Anemia, unspecified; I16.0 Hypertensive urgency; Z91.013 Allergy to seafood; Z79.899 Other long term (current) drug therapy
CPT/HCPCS: 96365; 96375; 99291; Z7506; Z7508; 36415; 36600; 70450; 71045; 74018; 74176; 80048; 80053; 80305; 81001; 81025; 82570; 82803; 82948; 83605; 83690; 83735; 84132; 84145; 84156; 84300; 84484; 85018; 85025; 87040; 87077; 87081; 87088; 87186; 87207; 93005; A4215; A4618; A7000; G0378; J0131; J0360; J0690; J0694; J0696; J1170; J1644; J2001; J2060; J2250; J2270; J2310; J2405; J2543; J2704; J2710; J3010; J3411; J3490; J7030; J7060; J7120

== ENCOUNTER 2019-07-16 14:23 | Emergency (ER) | payer MEDICAID ==
[~2019-07-16] VITALS: Ht 162.6 cm; Wt 107.0 kg
[~2019-07-16 14:23] MED LIST changes: -AMLO5TAB92 PO; -BENZ-49 PO; +LEVO750T46 PO; +LISI10TA4 PO; +METO25TA6 PO; -NITR100C6 PO; -PHEN-716 PO; -PRED10TA PO
[2019-07-16 14:40] VITALS: BP 178/108
== END 2019-07-16 16:16 | disposition home or self-care (01) ==
LOC: ER 14:25
DX: Z48.01 Encounter for change or removal of surgical wound dressing (principal); F15.90 Other stimulant use, unspecified, uncomplicated; Z91.013 Allergy to seafood; Z90.49 Acquired absence of other specified parts of digestive tract; Z79.2 Long term (current) use of antibiotics
CPT/HCPCS: 99281

== ENCOUNTER 2020-10-04 12:40 | Emergency (ER) | payer MEDICAID ==
[~2020-10-04] VITALS: Ht 160 cm; Wt 120.6 kg
[~2020-10-04 12:40] MED LIST changes: -LEVO750T46 PO; +LISI10TA27 PO; -LISI10TA4 PO
[2020-10-04 12:56] VITALS: BP 157/108
== END 2020-10-04 14:40 | disposition home or self-care (01) ==
LOC: ER 12:40
DX: M72.2 Plantar fascial fibromatosis (principal); M79.672 Pain in left foot; F15.90 Other stimulant use, unspecified, uncomplicated; Z72.89 Other problems related to lifestyle; Z91.013 Allergy to seafood; Z79.899 Other long term (current) drug therapy
CPT/HCPCS: 73620; 99283

== ENCOUNTER 2025-07-09 01:49 | Inpatient (IN) | payer MEDICAID ==
[~2025-07-09] VITALS: Ht 162.6 cm; Wt 120.0 kg
[~2025-07-09 01:49] MED LIST changes: +LOP25T PO; -METO25TA6 PO
[2025-07-09] MEDS: normal saline 1000ml 1,000 ML IV ONE ×2 (03:04→04:08)
[2025-07-09 03:34] LABS: MEAN PLATELET VOLUME 9.2 FL (7.4-10.4); RED CELL DISTRIBUTION WIDTH 13.8 % (11.5-14.5)
[2025-07-09 03:51] LABS: CREATININE 1.37 MG/DL (0.40-0.90); TOTAL CARBON DIOXIDE 28.6 MMOL/L (24-32); eCRCL 40 ML/MIN; eGFR 40 ML/MIN
[2025-07-09] MEDS: labetalol 20mg/4ml (5mg/ml) syringe IV ONE (04:11)
--- NOTE | 2025-07-09 05:20 | Physician Documentation ---
History of Present Illness Chief Complaint: Vomiting Stated Complaint: N/V Time Seen by MD: 01:58 Primary Medical Doctor: NO PMD HPI 54 year old female reports that she has been vomiting nonstop today. She had a dose of wegovy yesterday for the first time. Denies diarrhea, fevers, cough, shortness of breath, urinary symptoms. Medication Reconciliation Allergies: Coded Allergies: shellfish derived (Verified Allergy, Unknown, 07/09/25) Scheduled Epinephrine (Epipen 2-Earnest), 2 UNIT IM ONCE Lisinopril (Lisinopril), 10 MG PO BID Metoprolol Tartrate* (Lopressor tablet*), 1 TAB PO Q12H Past Medical History Past Medical History: No Pertinent History Past Surgical History: noncontributory Other Past Family History: NONE Alcohol Use: Occasionally Drug Use: methamphetamine Lives with: Family Lives In: Home Review of Systems All Other Systems at this time: Reviewed and Negative Physical Exam Vital Signs: RN Vital Signs have been reviewed: Yes, Temperature: 98.1, Source: Oral, Heart Rate: 93, Respiratory Rate: 28, BP: 144/95, Pulse Oximetry: 97, Weight: 120.000 Oxygen Flow Rate: 0 Physical Exam Gen: no distress, foul smelling HEENT: PERRL, EOMI Pulm: no distress Cardiac: deferred Abdomen: soft, nontender, nondistended MSK: no deformity Skin: w/d/i Neuro: nonfocal Psych: unremarkable Progress Results/Orders Results/Orders Orders - JARED EVNTURA MD CMP (07/09/25 04:58) Cbc/Diff (07/09/25 04:58) Completed Orders - JARED VENTURA MD Normal Saline 1000ml (0.9% Sodium Chlori (07/09/25 02:00) Cbc/Diff (07/09/25 01:58) CMP (07/09/25 01:58) Normal Saline 1000ml (0.9% Sodium Chlori (07/09/25 03:50) Clonidine Tablet (Catapres Tablet) (07/09/25 04:00) Labetalol Inj. (Trandate 20 Mg/4ml Syrin (07/09/25 04:00) Medications Received in ER Medications (Trade) Dose Ordered Sig/Radha Route PRN Reason Start Time Stop Time Status Last Admin Dose Admin Sodium Chloride 1,000 ml @ 1,000 mls/hr ONCE ONCE IV 07/09/25 02:00 07/09/25 02:59 DC 07/09/25 03:04 1,000 MLS/HR Sodium Chloride 1,000 ml @ 1,000 mls/hr ONCE ONCE IV 07/09/25 03:50 07/09/25 04:49 DC 07/09/25 04:08 1,000 MLS/HR (Catapres tablet) 0.1 mg ONCE ONCE PO 07/09/25 04:00 07/09/25 04:01 DC 07/09/25 04:08 0.1 MG (Trandate 20 mg/ 4ml syringe) 5 mg ONCE ONCE IV 07/09/25 04:00 07/09/25 04:06 DC 07/09/25 04:11 5 MG Vital Signs 07/09/25 07/09/25 07/09/25 07/09/25 02:00 03:08 03:08 03:59 Temp 98.1 Pulse 110 113 112 Resp 18 16 24 16 B/P (MAP) 177/137 182/139 (153) 226/131 (162) Pulse Ox 99 99 98 O2 Flow Rate 0 07/09/25 07/09/25 04:45 04:52 Pulse 94 93 Resp 18 28 B/P (MAP) 201/128 (152) 144/95 (111) Pulse Ox 97 97 O2 Flow Rate 0 Laboratory Tests Test 07/09/25 03:20 White Blood Count 13.9 H Red Blood Count 5.87 H Hemoglobin 17.7 H Hematocrit 52.3 H Mean Corpuscular Volume 89.1 Mean Corpuscular Hemoglobin 30.2 Mean Corpuscular Hemoglobin Concent 33.9 Red Cell Distribution Width 13.8 Platelet Count 344 Mean Platelet Volume 9.2 Neutrophils (%) (Auto) 84.3 H Lymphocytes (%) (Auto) 10.3 L Monocytes (%) (Auto) 5.1 Eosinophils (%) (Auto) 0 Basophils (%) (Auto) 0.3 Neutrophils # (Auto) 11.7 H Lymphocytes # (Auto) 1.4 Monocytes # (Auto) 0.7 Eosinophils # (Auto) 0.0 Basophils # (Auto) 0.0 CBC Comment Sodium Level 134 L Potassium Level 4.6 Chloride Level 97 L Carbon Dioxide Level 28.6 Anion Gap 8 Blood Urea Nitrogen 21 H Creatinine 1.37 H Estimated GFR/1.73 m2 40 BUN/Creatinine Ratio 15.3 Glucose Level 260 H Calcium Level 9.2 Total Bilirubin 1.1 H Aspartate Amino Transf (AST/SGOT) 82 H Alanine Aminotransferase (ALT/SGPT) 99 H Alkaline Phosphatase 130 H Total Protein 7.8 Albumin 3.8 Globulin 4.0 Albumin/Globulin Ratio 1.0 L Chemistry Comments Medical Decision Making Additional information obtaine: N/A Findings 54 year old female with likely medication side-effect. IVF and meds. Labs returned with variety of abnormalities including transaminitis, electrolyte abnormalities, leukocytosis and hemoconcentration. After several liters of fluid and medications to control marked hypertension, will repeat labs and sign over to oncoming ER physician for disposition. Differential Dx:Considerations: Other Additional Comments ddx = medication side effect, viral gastroenteritis, food poisoning, UTI, electrolyte disturbance, pancreatitis Departure Disposition: 30 STILL A PATIENT Impression: Primary Impression: Medication side effect Additional Impressions: Transaminitis Leukocytosis Condition: Stable Discharge Instructions: Nausea and Vomiting, Adult Referrals: NO PRIMARY CARE PROVIDER (PCP) Education Educated: Patient Educated regarding: diagnosis, treatment, prognosis, need for follow up Signature Scribe Signature: . Attestation: . JARED VENTURA MD Jul 09, 2025 05:20
[2025-07-09 06:04] LABS: MEAN PLATELET VOLUME 9.0 FL (7.4-10.4); RED CELL DISTRIBUTION WIDTH 13.9 % (11.5-14.5)
--- NOTE | 2025-07-09 06:12 | Physician Documentation ---
Addendum Received patient in sign out from outgoing ED physician, Dr. Real. Please see their note (and other providers) for further specific details regarding initial encounter. HPI/Course In Brief: 54 year old female reports that she has been vomiting nonstop today. She had a dose of Wegovy (semaglutide) yesterday for the first time. Denies diarrhea, fevers, cough, shortness of breath, urinary symptoms. 07/09/2025, 7:00 a.m.: After 2 L of fluid the patient's creatinine is virtually unchanged. She remains quite hypertensive. She admits to regular methamphetamine use. She has been prescribed antihypertensive in the past but ran out quite awhile ago. I feel that her kidney injury is not simply the result of taking semaglutide. She may have been running a significant hypertension for some time now. I am going to continue antihypertensive therapy in the emergency department and arrange for admission. ED COURSE: I Informed the patient of: 1. Nature of abnormal findings 2. Implications of the findings 3. Possible consequences of not receiving additional diagnosis and/or treatment, or following the current treatment plan. 4. Explanation of management options and provision of appropriate referral resources as indicated 5. Their responsibility to receive follow-up care Discussed harm reduction to this emergency department visit today. Patient expresses understanding and agrees to plan. All questions answered to the best of my ability. Discharged in stable condition with strict ED return precautions and close outpatient follow-up with primary care. EMR and Dragon Attestation - this medical document was created using an electronic medical record system with [employer] computerized dictation system. Although this document has been carefully reviewed, there may still be some phonetic and typographical errors. These errors are purely typographical, due to imperfections of the software programs, and do not reflect any compromise in the patient's medical care. Note to Patients: Physician notes are written for the purpose of communication between medical providers and billing purposes. There may be aspects of this documentation that are simplified for efficiency and clarity. Physician notes are not intended to capture the entirety of your experience in the hospital. If you have questions about the way your medical condition and care was documented, please do not hesitate to bring this up at your next visit with your physician. Departure Disposition: ADMITTED INPATIENT Admitted to Inpatient Unit: to hospitalist Admission Level of Care: Med/Surg with Tele Impression: Primary Impression: MARYA (acute kidney injury) Additional Impressions: Hypertension Methamphetamine abuse Condition: Fair SAMANTHA HEBERT MD Jul 09, 2025 06:12
[2025-07-09 06:27] LABS: CREATININE 1.36 MG/DL (0.40-0.90); TOTAL CARBON DIOXIDE 27.1 MMOL/L (24-32); eCRCL 40 ML/MIN; eGFR 40 ML/MIN
[2025-07-09] MEDS ORDERED: HYDROmorphone/PF 0.2 MG/ML SYRINGE IV PRN (07:45)
[2025-07-09] MEDS ORDERED: magnesium sulf-water 4G/100mL 100 ML IV PRN (07:45)
[2025-07-09] MEDS ORDERED: HYDROmorphone inj. 0.5 MG/0.5 ML DISP.SYRIN IV PRN (07:45)
[2025-07-09] MEDS ORDERED: magnesium sulf-water 2g/50mL 50 ML IV PRN (07:45)
[2025-07-09] MEDS ORDERED: potassium Cl 20 mEq SR tablet PO PRN ×2 (07:45)
[2025-07-09] MEDS ORDERED: metoclopramide 5 mg/ml inj IV PRN (07:45)
[2025-07-09] MEDS ORDERED: potassium Cl 40MEQ/1/2NS 520ml 520 ML IV PRN (07:45)
[2025-07-09] MEDS ORDERED: ondansetron/PF 4mg/2ml inj IV PRN (07:45)
[2025-07-09] MEDS ORDERED: magnesium hydroxide 30ml (MOM) UD suspension PO PRN (07:45)
[2025-07-09] MEDS ORDERED: HYDROcodone/acetaminophen 5mg/325mg tablet PO PRN (07:45)
[2025-07-09] MEDS ORDERED: mag hydrox/Alum hydrox/simeth 30ml oral suspension PO PRN (07:45)
[2025-07-09] MEDS ORDERED: HYDROcodone/acetaminophen 10/325mg tab PO PRN (07:45)
[2025-07-09] MEDS: K and/or MAG REPLACEMENT MC SCH (08:00)
[2025-07-09] MEDS: docusate sod 100mg capsule PO SCH (08:07)
[2025-07-09] MEDS: normal saline 1000ml 1,000 ML IV SCH (08:08)
[2025-07-09 08:25] LABS: LEUKOCYTE ESTERASE ,URINE NEGATIVE (Neg); NITRITES, URINE NEGATIVE (Neg); OCCULT BLOOD,URINE NEGATIVE (Neg)
[2025-07-09 08:27] LABS: UA COLLECTION TYPE OTHER
[2025-07-09 08:30] LABS: HYALINE CASTS 0-3 /LPF (NEGATIVE); MUCUS STRANDS FEW /LPF (Neg); SQUAMOUS EPITHELIAL CELL,UR FEW /LPF (FEW)
[2025-07-09 08:45] LABS: URINE AMPHETAMINE SCREEN POSITIVE (Neg); URINE BARBITUATE SCREEN NEGATIVE (Neg); URINE BENZODIAZEPINES SCREEN NEGATIVE (Neg); URINE CANNABINOID SCREEN NEGATIVE (Neg); URINE COCAINE SCREEN NEGATIVE (Neg); URINE METHADONE SCREEN NEGATIVE (Neg); URINE OPIATE SCREEN NEGATIVE (Neg); URINE PHENCYCLIDINE SCREEN NEGATIVE (Neg)
--- NOTE | 2025-07-09 09:22 | HISTORY AND PHYSICAL ---
History & Physical Providers to CC ~ History of Present Illness Reason for Admit\Complaint: Hypertensive emergency/ with secondary gastropathy History of Present Illness This is a 54-year-old female who reports a two day history of nausea and vomiting she had started Wegovy two days ago and developed nausea and vomiting shortly after injecting Wegovy the patient however has uncontrolled high hypertension has not been taking any antihypertensive medications for few months and in the ED her blood pressure was 226/131 which was improved labetalol IV the patient is also was given clonidine. The patient also endorses smoking methamphetamines on a near daily basis her last use was three days ago. The patient denies any fevers or chills has no other complaints and is resting comfortably in bed Allergies: Coded Allergies: shellfish derived (Verified Allergy, Unknown, 07/09/25) Home Medications Home Medications Active Metoprolol Tartrate 25 Mg Tablet 1 Tab PO Q12H 30 Days Lisinopril 10 Mg Tablet 10 Mg PO BID 30 Days Epipen 2-Earnest (Epinephrine HCl) 0.3 Mg/0.3 Ml Auto.injct 2 Unit IM ONCE Past Medical History Past Medical History Hypertension, medical noncompliance Past Surgical History Surgical History Comment Cholecystectomy (necrotic gallbladder) ORIF of the right femur Right hand surgery Family History Family History: Patient reports no known family medical history. Past Social History Social History Comment The patient denies smoking cigarettes, occasionally drinks alcohol, smokes methamphetamines on a daily basis. Full code status ROS ROS Except for positives in the HPI the rest of the 14 point review systems is negative Exam Vitals: Vital Signs Date Time Temp Pulse Resp B/P (MAP) Pulse Ox O2 Delivery O2 Flow Rate FiO2 07/09/25 08:52 95 21 131/98 (109) 07/09/25 06:01 98 07/09/25 04:52 0 07/09/25 02:00 98.1 General: Gen. No acute distress alert and oriented 4, morbidly obese Lungs clear to ascultation bilaterally, no wheezes rales or rhonchi appreciated Heart normal sinus rhythm no murmurs rubs or clicks noted Abdomen soft nontender bowel sounds are normoactive Lower extremities no clubbing cyanosis, nor edema appreciated bilaterally Diagnostic Data Last Recorded Lab Results: 07/09/25 0530 07/09/25 0530 Advance Care Planning Advanced Care plannin - 30 Minutes Problems: (1) Hypertensive emergency Status: Acute Additional Plan # hypertensive emergency # gastropathy likely secondary to hypertensive emergency # methamphetamine use disorder Prn IV labetalol Scheduled p.o. labetalol Monitor blood pressure Q shift Prn IV Reglan for nausea and vomiting Substance use navigator Sarah Macario consult is ordered # leukocytosis Highly likely secondary to leukemoid reaction Monitor daily CBC Note the patient is afebrile # kidney disease likely secondary to MARYA versus CKD Daily metabolic panel is ordered # DVT prophylaxis SCDs SQ Lovenox I spent a total of 17 minutes on reviewing various resuscitative measures/ ACP with the patient at the time of admission. The patient has decided on full code status. Date of Service: Jul 09, 2025 Billing Provider: KRISTEN NOEL DO Common Visit Codes: 07673-BPWTMQH INP/OBS CARE (HIGH) Secondary Visit Codes: 07266-[id number] CARE PLAN 30 MINUTES KRISTEN NOEL DO Jul 09, 2025 09:22
[2025-07-09 09:39] VITALS: BP 155/93; PULSE 94; RESP 16; TEMP 97.9; O2SAT 94
[2025-07-09] MEDS ORDERED: labetalol 20mg/4ml (5mg/ml) syringe IV PRN (11:10)
[2025-07-09 11:55] VITALS: BP 201/126; PULSE 99
[2025-07-09] MEDS: hydrALAZINE 20mg/ml inj. IV PRN (11:58)
[2025-07-09 13:17] VITALS: BP 142/94; PULSE 107
[2025-07-09] MEDS ORDERED: DEXTROSE 15 GM of carb/4 tabs (each vial/BOTTLE has 4 tablets) PO PRN ×2 (16:15)
[2025-07-09] MEDS ORDERED: dextrose 50%-water 50ml dispensing syringe IV PRN ×2 (16:15)
[2025-07-09] MEDS ORDERED: glucagon, human recombinant 1mg kit SUBCUT PRN (16:15)
[2025-07-09] MEDS: INSULIN LISPRO 100 UNIT/ML INSULN.PEN MULTI-DOSE SQ SCH (17:35)
[2025-07-09 18:00] VITALS: BP 145/80; PULSE 99; RESP 17; TEMP 97.8; O2SAT 96
[2025-07-09] MEDS: enoxaparin 40mg/0.4ml syringe SQ SCH (21:38)
[2025-07-09 22:00] VITALS: BP 160/112; PULSE 104; RESP 18; TEMP 98.2; O2SAT 94
[2025-07-09 23:15] VITALS: BP 177/107; PULSE 89
[2025-07-10 00:01] VITALS: BP 144/88; PULSE 88
[2025-07-10 05:00] VITALS: BP 113/57; PULSE 73; RESP 13; TEMP 97.4; O2SAT 96
[2025-07-10 05:51] LABS: MEAN PLATELET VOLUME 9.5 FL (7.4-10.4); RED CELL DISTRIBUTION WIDTH 14.7 % (11.5-14.5)
[2025-07-10 06:04] LABS: CREATININE 1.04 MG/DL (0.40-0.90); TOTAL CARBON DIOXIDE 26.3 MMOL/L (24-32); eCRCL 53 ML/MIN; eGFR 55 ML/MIN
[2025-07-10 10:00] VITALS: BP 142/83; PULSE 82; RESP 18; TEMP 99.8; O2SAT 93
[2025-07-10 17:59] VITALS: BP 113/66; PULSE 63; RESP 18; TEMP 97.5; O2SAT 96
--- NOTE | 2025-07-10 19:21 | PROGRESS NOTE ---
Daily Progress Note Providers to CC ~ Antibiotic Timeout Antibiotic Ordered?: No Subjective The patient denies any abdominal discomfort or nausea the patient is blood pressure significantly improved with amlodipine and labetalol as well as hydralazine is added. The patient is blood sugars were in the 200s on admission and a hemoglobin A1c is 9.0 the patient is started and a hyper and hypoglycemic protocol with sliding scale and I have added 10 units of Lantus q.p.m. Objective Vital Signs Date Time Temp Pulse Resp B/P (MAP) Pulse Ox O2 Delivery O2 Flow Rate FiO2 07/10/25 17:59 97.5 63 18 113/66 (82) 96 Room Air 07/10/25 11:10 0.0 Result Diagram: 07/10/2542507/10/25425 Gen. No acute distress alert and oriented 4, morbidly obese Lungs clear to ascultation bilaterally, no wheezes rales or rhonchi appreciated Heart normal sinus rhythm no murmurs rubs or clicks noted Abdomen soft nontender bowel sounds are normoactive Lower extremities no clubbing cyanosis, nor edema appreciated bilaterally Problem\Assessment\Plan Problems/Diagnosis: (1) Hypertensive emergency # hypertensive emergency # gastropathy likely secondary to hypertensive emergency # methamphetamine use disorder Scheduled p.o. labetalol Scheduled p.o. amlodipine Scheduled p.o. hydralazine Monitor blood pressure Q shift Prn IV Reglan for nausea and vomiting 07/10 Substance use navigator Sarah Macario consulted on the patient today and gave the patient resources Gastropathy has resolved and Blood pressure significantly improved # leukocytosis Highly likely secondary to leukemoid reaction Monitor daily CBC Note the patient is afebrile 07/10 resolved # MARYA possibly secondary to ATN Daily metabolic panel is ordered # new diagnosis of [id number] diabetes mellitus Hemoglobin A1c is 9.0 Sliding scale insulin Add Lantus 10 units HS Dietary consult with a registered dietitian I did speak at length about the risks of diabetes with the patient including neuropathy nephropathy retinopathy and peripheral neuropathy as well as cardiovascular complications including stroke and heart attack I will speak with the patient about diet tomorrow and I strongly recommend avoiding potatoes at all cost # DVT prophylaxis SCDs SQ Lovenox Date of Service: Jul 10, 2025 Billing Provider: KRISTEN NOEL DO Common Visit Codes: [id number] INP/OBS CARE(HIGH) KRISTEN NOEL DO Jul 10, 2025 19:21
[2025-07-10 21:28] VITALS: BP 125/66; PULSE 88; RESP 18; TEMP 98.6; O2SAT 95
[2025-07-10 22:00] VITALS: BP 137/73; PULSE 75; RESP 20; TEMP 98.6; O2SAT 94
[2025-07-10] MEDS: insulin glargine (Lantus) pen - multi-dose SQ SCH (22:01)
[2025-07-11 00:59] VITALS: BP 151/80; PULSE 87; RESP 16; O2SAT 94
[2025-07-11 05:02] LABS: CREATININE 0.99 MG/DL (0.40-0.90); TOTAL CARBON DIOXIDE 25.9 MMOL/L (24-32); eCRCL 55 ML/MIN; eGFR 58 ML/MIN
[2025-07-11 05:11] LABS: MEAN PLATELET VOLUME 9.2 FL (7.4-10.4); RED CELL DISTRIBUTION WIDTH 14.2 % (11.5-14.5)
[2025-07-11 06:00] VITALS: BP 146/82; PULSE 80; RESP 19; TEMP 97.9; O2SAT 95
[2025-07-11 10:00] VITALS: BP 113/65; PULSE 81; RESP 18; TEMP 98.4; O2SAT 94
[2025-07-11] MEDS ORDERED: METF-1203 PO (13:08)
[2025-07-11] MEDS ORDERED: INSU100I31 SQ (13:08)
[2025-07-11] MEDS ORDERED: HYDR25TA90 PO (13:08)
[2025-07-11] MEDS ORDERED: NEED-136 SUBCUT (13:08)
[2025-07-11] MEDS ORDERED: AMLO10TA13 PO (13:08)
[2025-07-11] MEDS ORDERED: LABE300T80 PO (13:08)
[2025-07-11] MEDS ORDERED: ONDA-243 PO (13:10)
--- NOTE | 2025-07-11 19:27 | DISCHARGE SUMMARY ---
Discharge Summary Providers to CC ~ Discharge Summary Admission Diagnosis: gastroparesis w gastroenteritis Hospital Course DATE OF ADMISSION: 07/09/2025 DATE OF DISCHARGE: 07/11/2025 Discharge Diagnosis\\Comment: Hypertensive emergency with secondary gastropathy, methamphetamine use disorder, leukocytosis, MARYA possibly secondary to ATN, new diagnosis of diabetes mellitus type 2 Operations\\Procedures: None Consultants: Substance use navigator Sarah Macario consult is ordered Complications: None Condition on DC: Stable New Medications: Insulin Glargine,Hum.rec.anlog (Basaglar Kwikpen U-100) 100 Unit/Ml (3 Ml) Insuln.pen 10 UNITS SQ QPM, #3 ML Metformin HCl (Metformin HCl) 500 Mg Tablet 1 TAB PO TIDWM, #90 TAB [place], Insulin Disposable (Bd Ultra-Fine Pen Needle) 31 Gauge X 5/16" Dis.needle SYR SUBCUT DAILY, #90 0 Refills ONDANSETRON ODT 4mg tablet (Ondansetron Odt) 4 Mg Tab.rapdis 1 TAB PO Q6H PRN PRN for nausea/vomiting, #16 TAB 0 Refills Amlodipine Besylate (Amlodipine Besylate) 10 Mg Tablet 1 TAB PO DAILY for 30 Days, #30 TAB 0 Refills Hydralazine Hcl* (Apresoline*) 25 Mg Tablet 1 TAB PO Q8H for 30 Days, #90 TAB Labetalol Hcl (Labetalol Hcl) 300 Mg Tablet 1 TAB PO Q12H for 30 Days, #60 TAB 0 Refills Continued Medications: Epinephrine (Epipen 2-Earnest) 0.3 Mg/0.3 Ml Auto.injct 2 UNIT IM ONCE, #2 1 Refill Discontinued Medications: Lisinopril (Lisinopril) 10 Mg Tablet 10 MG PO BID for 30 Days, #60 TAB Metoprolol Tartrate* (Lopressor tablet*) 25 Mg Tablet 1 TAB PO Q12H for 30 Days, #60 TAB Discharge Summary: This is a 54-year-old female who reports a two day history of nausea and vomiting she had started Wegovy two days ago and developed nausea and vomiting shortly after injecting Wegovy the patient however has uncontrolled high hypertension has not been taking any antihypertensive medications for few months and in the ED her blood pressure was 226/131 which was improved labetalol IV the patient is also was given clonidine. The patient also endorses smoking methamphetamines on a near daily basis her last use was three days ago. The patient denies any fevers or chills has no other complaints and is resting comfortably in bed The patient is blood pressure did improve with adding a p.o. amlodipine as well as p.o. labetalol and scheduled hydralazine p.o. as well and the patient is gastropathy had resolved by the morning of the with improvement of her blood pressure. Substance use navigator Sarah Macario consult occurred and the patient received resources. The patient has a new onset diabetic type 2 hemoglobin A1c is 9.0 the patient is blood glucose on chemistries on arrival was in the 200s the patient is started on 10 units of Lantus at night in her blood sugars became controlled in the 100s the patient was started on discharge on metformin as well and discharged with a 10 units of Lantus at night and insulin pen needles as well as a glucometer and test strips. The patient has a acute kidney injury with a creatinine of 1.37 on admission this did improve and was 0.99 by the day discharge her acute kidney injury was possibly secondary to ATN. Gen. No acute distress alert and oriented 4, morbidly obese Lungs clear to ascultation bilaterally, no wheezes rales or rhonchi appreciated Heart normal sinus rhythm no murmurs rubs or clicks noted Abdomen soft nontender bowel sounds are normoactive Lower extremities no clubbing cyanosis, nor edema appreciated bilaterally The patient felt ready to be discharged and was medically cleared to be discharged on 07/11/2025 The patient was seen and evaluated on day of discharge. Time spent on discharge 40 minutes *Problems/Diagnosis: (1) Hypertensive emergency Status: Acute Total Time Spent on D/C: > 30 Minutes Date of Service: Jul 11, 2025 Billing Provider: KRISTEN NOEL DO Common Visit Codes: [id number] DISCH DAY >30min KRISTEN NOEL DO Jul 11, 2025 19:27
== END 2025-07-11 16:15 | disposition home or self-care (01) | DRG 199 ==
LOC: ER 01:51 → ED HOLD 07:49 → SUR 3N 09:33
PROVIDERS: ADMIT Family Medicine; ATTEND Family Medicine
DX: I16.1 Hypertensive emergency (principal); N17.0 Acute kidney failure with tubular necrosis; F15.10 Other stimulant abuse, uncomplicated; D72.829 Elevated white blood cell count, unspecified; E11.9 Type 2 diabetes mellitus without complications; K31.9 Disease of stomach and duodenum, unspecified; I10 Essential (primary) hypertension; R74.01 Elevation of levels of liver transaminase levels; Z79.4 Long term (current) use of insulin; Z90.49 Acquired absence of other specified parts of digestive tract
CPT/HCPCS: 36415; 80053; 80305; 81001; 82948; 83036; 83690; 83735; 85025; 87081; 99285; G0378; J0360; J1650; J1815; J3490; J7030